=== PATIENT | male | born 1960 | race Caucasian/White ===

== ENCOUNTER 2018-04-02 14:31 | Outpatient (CLI) | payer OTHER ==
--- NOTE | 2018-04-02 20:11 | RAD ---
LEFT FOOT THREE VIEWS: 04/02/18 No fracture or periosteal reaction was seen. A small calcaneal spur is present. Some soft tissue swel ling is suggested in the forefoot. IMPRESSION: No acute bony findings. POS: HOME
== END 2018-04-02 14:32 | disposition home or self-care (01) ==
LOC: BURRAD 14:31
PROVIDERS: ATTEND Family Medicine
DX: M79.672 Pain in left foot (principal)